=== PATIENT | female | born 1970 | race Caucasian/White ===

== ENCOUNTER 2016-10-05 13:35 | Day surgery (SDC) | payer MEDICARE, OTHER ==
--- NOTE | ~2016-10-05 | OP ---
Record Of Operation [facility] [address] [place]. [address] NAME: FARIHA CAREY : 66 STATUS : [facility] UNIT#: [id number] AGE: 46 ADM/REG DATE : 10/05/16 MR#: [id number] REPORT SERV DATE: 10/06/16 DICTATED BY: ERIS LYLES DATE: 10/05/16 REPORT STATUS : Draft TRANSCRIBED BY: MODMargarette DATE: 10/05/16 DATE OF PROCEDURE: 10/05/2016 PREOPERATIVE DIAGNOSIS: Chronic otitis externa in both ears with chronic otorrhea. POSTOPERATIVE DIAGNOSIS: Chronic otitis externa in both ears with chronic otorrhea. OPERATIVE PROCEDURE: Exam under anesthesia of the ears with culture and irrigation, bilaterally. SURGEON: Eris Lyles M.D. ANESTHESIA: General via LMA. ESTIMATED BLOOD LOSS: Less than 1 mL. INTRAOPERATIVE FLUIDS: 450 mL crystalloid. INTRAOPERATIVE FINDINGS: Extensive moist debris filling the ear canal on the right side, extending into the anterior sulcus. Moderate amount of similar appearing debris in the left ear. OPERATIVE PROCEDURE: The patient was identified in the holding room, transported to the operating room. In the operating room, the patient was placed on the operating table in the supine position. Following induction of anesthesia, the patient's airway was controlled with an LMA. The microscope was then positioned for examination of the right ear. The patient did have moderate excoriation of the skin in the conchal bowl. Examination of the ear canal revealed a moist caseous appearing debris filling the medial three-fourths of the ear canal. A sample was collected from this debris on a swab and sent for routine culture. Material was also collected, and once again, sent for routine culture. The remaining debris was evacuated from the ear canal. The ear canal was rinsed with acetic acid solution. There was moderate residual inflammation of the skin of the ear canal and the surface of the tympanic membrane with a small amount of reactive tissue identified. With the appearance of the ear, despite a lack of spores in the material removed from the ear canal, my suspicion is that the infection is related to an otomycosis and will initiate treatment appropriate for this condition. A culture and irrigation were then performed in similar fashion in the left ear. At the end of the operative procedure, the patient was awakened from anesthesia and transported to the recovery room in good condition. The patient tolerated the procedure well. There were no apparent complications. There were no specimens. Cultures included routine culture of debris from the external auditory canal, bilaterally. TF/MARYBETH Record Of [place] [address] [place]. [address] NAME: FARIHA CAREY : 66 STATUS : [facility] PAT#: [id number] AGE: 46 ADM/REG DATE : 10/05/16 MR#: [id number] REPORT SERV DATE: 10/06/16 DICTATED BY: ERIS LYLES DATE: 10/05/16 REPORT STATUS : Draft TRANSCRIBED BY: MARYBETH DATE: 10/05/16 Eris Lyles M.D. / [id number] CC: Kristy Cassidy D.O.
[~2016-10-05 13:35] MED LIST: 15KENA.025 T; ASTELIN NAS; AT25 PO; CALCIUM/VIT D PO; CLOBETASOL0.051 EX; CRANBERY450 MG OR; CULTIVATE CREAM T; DEP250 PO; DIAZEPAM; DOX25 PO; KEPPRA500 PO; LAC-HYDRIN TOP; LAMICTAL200 MG PO; MACRO50B PO; MIRALAX POWDER1 PKT PO; MIRALAXPKT PO; MULTIPLE VIT PO; NASACORTAQ NAS; OS500+D PO; RISPERDAL0.25 MG PO; SODBICAR10 PO; TENEX1 PO; TOLNAFTATE T; TRAZODONE150 MG PO; TRIAMCINOLONE C80 GM TOP; V2 PO; VESICARE10 MG PO; VIMPAT100 MG PO; VITAMIN B-6100 MG OR; VITAMIN B-625 MG OR; Valium PR; Valium RE; ZANTAC150 MG PO; ZOCOR10 PO; ZOL50 PO; ZONEGRAN PO; ZYRTEC ALLGY10 MG PO; [UNRECOGNIZED DRUG - OTHER]
[2016-10-05 14:44] LABS: HEMATOCRIT 42.7 % (36.0-48.0); HEMOGLOBIN 14.8 g/dL (12.0-16.0)
== END 2016-10-05 19:15 | disposition home or self-care (01) ==
LOC: SDC 13:35
PROVIDERS: Otolaryngology
PROC: 3E1B78Z Irrigation of Ear using Irrigating Substance, Via Natural or Artificial Opening (ICD-10-PCS; principal; 2016-10-05 15:00)
DX: H60.63 Unspecified chronic otitis externa, bilateral (principal); H92.13 Otorrhea, bilateral; G40.909 Epilepsy, unspecified, not intractable, without status epilepticus; F79 Unspecified intellectual disabilities; Z88.0 Allergy status to penicillin; Z88.2 Allergy status to sulfonamides; Z88.8 Allergy status to other drugs, medicaments and biological substances; Z79.2 Long term (current) use of antibiotics; Z79.899 Other long term (current) drug therapy
CPT/HCPCS: 85014; 85018; 87015; 87070; 87075; 87077; 87102; 87116; 87186; 87205; J2250; J2405; J3010